=== PATIENT | male | born 1955 | race Caucasian/White ===

== ENCOUNTER 2018-11-10 01:36 | Observation (INO) | payer BC ==
--- NOTE | 2018-11-10 02:17 | ED ---
General Adult HPI - General Chief complaint: Urogenital Stated complaint: Male Time Seen by Provider: 11/10/18 01:48 Source: patient Mode of arrival: ambulatory Limitations: no limitations - History of Present Illness Initial comments: Dictation was produced using [employer] dictation software. please excuse any grammatical, word or spelling errors. Chief Complaint: Patient is a 63-year-old male. He has past medical history of urethral stricture presents today with urinary retention. History of Present Illness: 3-year-old male presents with chief complaint of urinary retention. He states that his symptoms have been progressively worse. Patient states that he last urinated approximately 4 PM today. Patient states he hasn't been able to urinate since then. 3 years ago patient was diagnosed with urethral stricture. He was evaluated by Dr. Plascencia. He was told to follow- up with a Dr. Toscano who was also perform some sort of interventional procedure to alleviate to stricture. Patient did not follow-up like he was told to. He's been having weak stream for the last several months. The ROS documented in this emergency department record has been reviewed and confirmed by me. Those systems with pertinent positive or negative responses have been documented in the HPI. All other systems are other negative and/or noncontributory. PHYSICAL EXAM: General Impression: Alert and oriented x3, not in acute distress HEENT: Normocephalic atraumatic, extra-ocular movements intact, pupils equal and reactive to light bilaterally, mucous membranes moist. Cardiovascular: Heart regular rate and rhythm, S1&S2 audible, no murmurs, rubs or gallops Chest: Lungs clear to auscultation bilaterally, no rhonchi, no wheeze, no rales Abdomen: Fullness felt to the suprapubic area Musculoskeletal: Pulses present and equal in all extremities, no peripheral edema Motor: no focal deficits noted Neurological: CN II-XII grossly intact, no focal motor or sensory deficits noted Skin: Intact with no visualized rashes Psych: Normal affect and mood ED course: Patient 63-year-old male with past medical history of urinary tract stricture presents with urinary retention. Vital signs upon arrival are within acceptable limits.Although attempts were performed to place Armenta catheter after bladder scan showed greater than 400 mL of urine. Immediately discussed patient case with Dr. Gee. Dr. Ortega did not feel the need for him to come in and perform an emergent Armenta catheter placement at this time. He over does request that cystoscopy cart and 2% lidocaine be at bedside when he comes in and rounded in the morning so he can perform the procedure. Patient appears comfortable at this time. he is notified of urology's recommendations. Patient wants some medication to help him feel more comfortable. Metabolic panel is unremarkable. Patient placed in observation. Dr. Ortega is placed on consult. - Related Data Home Medications Medication Instructions Recorded Confirmed Ibuprofen [Motrin] 200 mg PO Q6H PRN 09/08/15 11/10/18 Cholesterol Pill 1 tab PO DAILY 11/10/18 11/10/18 traMADol HCl [Ultram] 50 mg PO DAILY 11/10/18 11/10/18 Allergies Allergy/AdvReac Type Severity Reaction Status Date / Time No Known Allergies Allergy Verified 11/10/18 01:42 Review of Systems ROS Statement: Those systems with pertinent positive or pertinent negative responses have been documented in the HPI. ROS Other: All systems not noted in ROS Statement are negative. Past Medical History Additional Past Medical History / Comment(s): kidney stones History of Any Multi-Drug Resistant Organisms: None Reported Past Surgical History: Hernia Repair Past Psychological History: No Psychological Hx Reported Smoking Status: Former smoker Past Alcohol Use History: None Reported Past Drug Use History: None Reported General Exam Limitations: no limitations Course Vital Signs 11/10/18 01:37 Temperature 98.2 F Pulse Rate 81 Respiratory 18 Rate Blood Pressure 193/95 O2 Sat by Pulse 97 Oximetry Medical Decision Making - Lab Data Result diagrams: 11/10/18 02:25 Lab Results 11/10/18 Range/Units 02:25 Sodium 140 (137-145) mmol/L Potassium 4.7 (3.5-5.1) mmol/L Chloride 107 (98-107) mmol/L Carbon Dioxide 23 (22-30) mmol/L Anion Gap 10 mmol/L BUN 17 (9-20) mg/dL Creatinine 0.95 (0.66-1.25) mg/dL Est GFR (CKD-EPI)AfAm >90 (>60 ml/min/1.73 sqM) Est GFR (CKD-EPI)NonAf 85 (>60 ml/min/1.73 sqM) Glucose 114 H (74-99) mg/dL Calcium 9.7 (8.4-10.2) mg/dL Disposition Clinical Impression: Urinary retention Disposition: ADMITTED IP TO THIS [facility] Condition: Fair Decision Time: 03:07
[2018-11-10] MEDS ORDERED: NALOXONE 0.4 MG/ML 1 ML VIAL IV PRN (02:30)
[2018-11-10] MEDS ORDERED: ONDANSETRON 4 MG/2 ML VIAL IVP PRN (02:30)
[2018-11-10] MEDS ORDERED: ACETAMINOPHEN TAB 325 MG TAB PO PRN (02:30)
[2018-11-10 02:45] LABS: African American GFR (CKD) >90 (>60 ml/min/1.73 sqM); Anion Gap 10 mmol/L; Blood Urea Nitrogen 17 mg/dL (9-20); Calcium 9.7 mg/dL (8.4-10.2); Carbon Dioxide 23 mmol/L (22-30); Chloride 107 mmol/L (98-107); Glucose 114 mg/dL (74-99); Potassium 4.7 mmol/L (3.5-5.1); Sodium 140 mmol/L (137-145)
[2018-11-10] MEDS: MORPHINE SULFATE 4 MG/ML SYRINGE IV PRN ×2 (02:50→06:36)
[2018-11-10 07:24] VITALS: BP 135/74; PULSE 65; RESP 18; TEMP 98.4
[2018-11-10] MEDS ORDERED: LIDOCAINE URO-JET JELLY 2% 5 ML KIT URETHRAL ONE ×2 (08:59→09:00)
[2018-11-10] MEDS ORDERED: PANTOPRAZOLE 40 MG/10 ML VIAL IV SCH (09:00)
--- NOTE | 2018-11-10 09:30 | P.GSCN ---
History of Present Illness Consult date: 11/10/18 Reason for Consult: Urinary retention, inability to place Armenta. Requesting physician: Yaakov Moore History of present illness: The patient is a 63-year-old white male with a known bulbous urethral stricture. Dr. Salas dilated the stricture in 2015. The patient has noted a weakening of his urinary stream over the past several months. He presented to the emergency room unable to void. Attempts in the emergency room to place a Armenta catheter were unsuccessful. I am consulted for this reason. Review of Systems - Constitutional Denies chills, Denies fever - Genitourinary Reports urinary retention, Denies hematuria Past Medical History Past Medical History: Hyperlipidemia Additional Past Medical History / Comment(s): kidney stones, urethral stricture History of Any Multi-Drug Resistant Organisms: None Reported Past Surgical History: Hernia Repair, Orthopedic Surgery Additional Past Surgical History / Comment(s): left shoulder surgery Past Anesthesia/Blood Transfusion Reactions: No Reported Reaction Past Psychological History: No Psychological Hx Reported Smoking Status: Former smoker Past Alcohol Use History: None Reported Past Drug Use History: None Reported - Past Family History Father Family Medical History: Dementia, Diabetes Mellitus Additional Family Medical History / Comment(s): parkinsons Mother Family Medical History: Dementia Additional Family Medical History / Comment(s): aneursym Brother(s) Family Medical History: No Reported History Sister(s) Family Medical History: No Reported History Son(s) Family Medical History: No Reported History Medications and Allergies Home Medications Medication Instructions Recorded Confirmed Type Ibuprofen [Motrin] 200 mg PO Q6H PRN 09/08/15 11/10/18 History Atorvastatin [Lipitor] 40 mg PO HS 11/10/18 11/10/18 History traMADol HCl [Ultram] 50 mg PO DAILY PRN 11/10/18 11/10/18 History Allergies Allergy/AdvReac Type Severity Reaction Status Date / Time No Known Allergies Allergy Verified 11/10/18 08:04 Surgical - Exam Vital Signs Temp Pulse Resp BP Pulse Ox 98.2 F 81 18 193/95 97 11/10/18 01:37 11/10/18 01:37 11/10/18 01:37 11/10/18 01:37 11/10/18 01:37 - General well developed, well nourished, moderate distress - Respiratory normal respiratory effort - Abdomen Abdomen: soft, tender, no guarding, no rigid, no rebound, distended Hernia: umbilical - Genitourinary normal penis with no external lesions, testicles non-tender - Psychiatric oriented to time, oriented to person, oriented to place, speech is normal, memory intact Results - Labs 11/10/18 02:25 Abnormal Lab Results - Last 24 Hours (Table) 11/10/18 Range/Units 02:25 Glucose 114 H (74-99) mg/dL Diabetes panel 11/10/18 Range/Units 02:25 Sodium 140 (137-145) mmol/L Potassium 4.7 (3.5-5.1) mmol/L Chloride 107 (98-107) mmol/L Carbon Dioxide 23 (22-30) mmol/L BUN 17 (9-20) mg/dL Creatinine 0.95 (0.66-1.25) mg/dL Glucose 114 H (74-99) mg/dL Calcium 9.7 (8.4-10.2) mg/dL Calcium panel 11/10/18 Range/Units 02:25 Calcium 9.7 (8.4-10.2) mg/dL Pituitary panel 11/10/18 Range/Units 02:25 Sodium 140 (137-145) mmol/L Potassium 4.7 (3.5-5.1) mmol/L Chloride 107 (98-107) mmol/L Carbon Dioxide 23 (22-30) mmol/L BUN 17 (9-20) mg/dL Creatinine 0.95 (0.66-1.25) mg/dL Glucose 114 H (74-99) mg/dL Calcium 9.7 (8.4-10.2) mg/dL Adrenal panel 11/10/18 Range/Units 02:25 Sodium 140 (137-145) mmol/L Potassium 4.7 (3.5-5.1) mmol/L Chloride 107 (98-107) mmol/L Carbon Dioxide 23 (22-30) mmol/L BUN 17 (9-20) mg/dL Creatinine 0.95 (0.66-1.25) mg/dL Glucose 114 H (74-99) mg/dL Calcium 9.7 (8.4-10.2) mg/dL Assessment and Plan (1) Urinary retention Current Visit: Yes Status: Acute Code(s): R33.9 - RETENTION OF URINE, UN SPECIFIED SNOMED Code(s): 318252405 (2) Urethral stricture unspecified Current Visit: Yes Status: Acute Code(s): PJE2615 - SNOMED Code(s): 81950676 Plan: The penis was prepped and draped sterilely. 2% lidocaine gel was administered intraurethrally. A 3-Gambian filiform was passed into the bladder. Followers were then used to successively dilate the bulbous urethral stricture from 10- Gambian to 20-Gambian. The stricture felt short and not particularly dense. After dilating the stricture, a 16-Gambian Armenta catheter was placed. 1200 mL of clear yellow urine was drained from the bladder. It would be my recommendation that Mr. Rod be discharged home with the Armenta catheter. I have instructed him to remove the catheter on 11/15/2018 and follow-up with Dr. Salas 1 week later. Please notify me if I can be of any further assistance. Time with Patient: Greater than 30
--- NOTE | 2018-11-10 17:39 | HP ---
HISTORY AND PHYSICAL HISTORY AND PHYSICAL/DISCHARGE SUMMARY: DATE OF SERVICE: 11/10/2018 CHIEF COMPLAINT: Urinary retention. HISTORY OF PRESENT ILLNESS: This 63-year-old gentleman with a past history of hyperlipidemia, history of nephrolithiasis, history of hernia repair, being followed by Dr. Abdi in the outpatient setting has had a history of urinary obstruction because of urethral stricture in the bulbous area. The patient had dilatation by Dr. Salas previously. Now the patient noted weakening of stream and the patient was complaining of increasing difficulty in micturition and the patient came to [facility] and was admitted for further evaluation and treatment. After admission, urology, Dr. Gee saw the patient and catheter insertion was performed. The patient improved significantly. The bulbous urethral stricture was dilated and the patient being closely monitored at this time. There is no history of fever, rigors. No history of headache loss of consciousness. No chest pain, palpitations, hematochezia or melena at this time. PREMEDICATION: Past medical history of hypertension, hyperlipidemia, nephrolithiasis, ureteral stricture and history of nicotine dependence. MEDICATIONS ARE: Home medications are: 1. Ultram 50 mg daily p.r.n. 2. Motrin p.r.n. 3. Lipitor 40 mg q.h.s. ALLERGIES: None. FAMILY HISTORY: History of diabetes, history of dementia, history of Parkinson's in the family. SOCIAL HISTORY: Previous history of smoking. No history of current smoking or alcohol intake. REVIEW OF SYSTEMS: ENT: No diminished vision. No diminished hearing. CARDIOVASCULAR: No angina or palpitations. RESPIRATORY: No cough. GI as mentioned earlier. as mentioned earlier. CENTRAL NERVOUS SYSTEM: No numbness or weakness. ALLERGY/IMMUNOLOGY: No asthma or hayfever. MUSCULOSKELETAL: As mentioned earlier. HEMATOLOGY/ONCOLOGY: No history of anemia. ENDOCRINE: No history of diabetes, hypothyroidism. CONSTITUTIONAL: As mentioned earlier. DERMATOLOGY: Negative. RHEUMATOLOGY: Negative. PSYCHIATRIC: As mentioned earlier. PHYSICAL EXAMINATION: Alert and oriented times three. Pulse 65, blood pressure 130/74, respiration 18, temperature 98.4, pulse ox 94% on room air. HEENT conjunctivae normal. Oral mucosa moist. NECK is no jugular venous distention. No carotid bruit. No lymph node enlargement. Cardiovascular system: S1, S2 muffled. RESPIRATIONS: Breath sounds diminished in the bases. No rhonchi. No crackles. ABDOMEN: Soft, nontender. No mass palpable. LEGS: No edema. No swelling. NERVOUS SYSTEM: Higher functions as mentioned earlier, moves all 4 limbs. No focal motor or sensory deficits. Lymphatics: No lymph nodes palpable in the neck, axillae or groin. SKIN: No ulcer, no rashes and no bleeding. JOINTS: No active deforming arthropathy. LAB STUDIES: Sodium 140, potassium 4.2. ASSESSMENT: 1. Acute urinary retention secondary to urethral stricture status post dilatation and Armenta catheter insertion. 2. Hyperlipidemia. 3. History of nephrolithiasis. 4. History of hernia repair. 5. History of degenerative joint disease. 6. Remote history of nicotine dependence. RECOMMENDATIONS AND DISCUSSION: In this 63-year-old gentleman who presented with multiple complex medical issues, at this time, I recommend to continue current medications, management. Symptomatic treatment. Urology inserted the catheter. Recommended outpatient followup. Otherwise basic labs are within normal limits. Renal functions are normal. I would recommend resume the home medications. Follow closely with Dr. Abdi in the outpatient setting. Please refer to medication reconciliation for home medication list. MMODL / IJN: [id number] /
== END 2018-11-10 13:00 | disposition home or self-care (01) ==
LOC: EC 01:36 → 1SOBS 02:32
PROVIDERS: ADMIT Hospitalist; ATTEND Hospitalist
DX: R33.9 Retention of urine, unspecified (principal); N35.919 Unspecified urethral stricture, male, unspecified site; E78.5 Hyperlipidemia, unspecified; Z87.891 Personal history of nicotine dependence; Z87.442 Personal history of urinary calculi; Z98.890 Other specified postprocedural states; Z79.899 Other long term (current) drug therapy
CPT/HCPCS: 96376; 96374; 96375; 99284; 51798; 36415; 80048; G0378; J2270; J2405

== ENCOUNTER → 2018-12-11 | Outpatient (CLI) | payer BC ==
--- NOTE | 2018-12-11 13:28 | XR ---
EXAMINATION TYPE: XR chest 2V DATE OF EXAM: 12/11/2018 COMPARISON: None HISTORY: 63-year-old male with cough TECHNIQUE: Frontal and lateral views FINDINGS: The cardiomediastinal silhouette, aorta, and pulmonary vasculature are within normal limits. Lungs an d pleural spaces are clear. IMPRESSION: No acute cardiopulmonary process.
== END | disposition home or self-care (01) ==
LOC: RADXRYALE 09:13
PROVIDERS: ATTEND Internal Medicine
DX: R05 Cough (principal)
CPT/HCPCS: 71046

== ENCOUNTER → 2018-12-17 | Outpatient (CLI) | payer BC ==
--- NOTE | 2018-12-17 09:14 | CT ---
EXAMINATION TYPE: CT abdomen pelvis w con DATE OF EXAM: 12/17/2018 COMPARISON: NONE HISTORY: 63-year-old male Weight loss and fatigue TECHNIQUE: Contiguous axial scanning of the abdomen and pelvis following administration of 100 ml Iso michel 300 IV contrast. Delayed images through the kidneys and coronal/sagittal reconstructions perform ed. CT DLP: 656.6 mGycm Automated exposure control for dose reduction was used. FINDINGS: Heart normal size without pericardial effusion. Coronary vessel calcifications are present. Mild depe ndent atelectasis. Liver mildly enlarged at 19.1 cm with low attenuation. Portal venous system is patent. No biliary ciara polo dilatation. Gallbladder, adrenal glands, and pancreas appear within normal limits. Spleen is upper limits of normal in size at 13.9 cm on coronal series. 1.7 cm cortical cyst anterior upper pole right kidney. There is an area of heterogeneous hypoenhancement within the lateral upper pole of the right kidney m easuring approximately 3.2 cm, referred to axial image 21. Smaller similar area anterior midpole righ t kidney. An additional similar heterogeneous hypoechoic area anterior mid left kidney measuring 3.5 cm with flynn rrounding perinephric fat stranding. Cysts within the left kidney measure up to 5.8 cm. There is a cystic structure in the region of hypo density within the left kidney measuring 1.4 cm suspected to represent a concurrent cortical cyst. Symmetric excretion of contrast from the kidneys. No dilated small bowel, free fluid, or free air. Borderline sized mesenteric lymph nodes on the left side of the abdomen measuring up to 7 mm, referen ce axial image 31. No retroperitoneal lymphadenopathy. Mild metastatic calcifications abdominal aorta and iliac arteries with fusiform AAA at 3.5 cm. Normal appendix. Mild overall stool burden. No pericolonic inflammatory change. Some surgical material seen along the left inguinal region. Moderate circumferential bladder wall thickening. Prostate gland measures 4.4 cm wide. Vitrectomy cli ps. No abnormal fluid collection in the pelvis or pelvic lymphadenopathy seen. Bones: Mild degenerative changes of the hips and SI joints. Mild degenerative disc disease throughout the lumbar spine with facet arthropathy lower lumbar spine. IMPRESSION: 1. ROUNDED AREAS OF HETEROGENEOUS HYPOVASCULAR ENHANCEMENT IN THE KIDNEYS, LARGEST MEASURING 3.2 CM O N THE RIGHT AND 3.5 CM ON THE LEFT. ON THE LEFT, THERE IS SOME ASSOCIATED PERINEPHRIC FAT STRANDING. MULTIFOCAL PYELONEPHRITIS IS FAVORED. 2. FOLLOW-UP CONTRAST-ENHANCED CT IS RECOMMENDED AFTER SUCCESSFUL TREATMENT TO EXCLUDE THE LESS LIKEL Y POSSIBILITY OF UNDERLYING HYPOVASCULAR RENAL MASSES. 3. MODERATE CIRCUMFERENTIAL BLADDER WALL THICKENING. GIVEN THE RENAL FINDINGS ABOVE, CORRELATE FOR CY STITIS. 4. AAA AT 3.5 CM. A [place] level critical message alert has been initiated for Cherry Abdi MD via the [facility] Critical Results System on 12/17/2018 9:11 AM. This message alert has been sent to Cherry Abdi MD via the preferences provided by the clinician for the receipt of Radiology Critical Findings. Message ID [id number].
== END | disposition home or self-care (01) ==
LOC: RADCTMAIN 07:32
PROVIDERS: ATTEND Internal Medicine
DX: I71.4 Abdominal aortic aneurysm, without rupture (principal); N32.89 Other specified disorders of bladder; R93.421 Abnormal radiologic findings on diagnostic imaging of right kidney; R93.422 Abnormal radiologic findings on diagnostic imaging of left kidney
CPT/HCPCS: 74177; Q9967

== ENCOUNTER → 2020-12-03 | Outpatient (CLI) | payer MEDICARE, BC ==
--- NOTE | 2020-12-03 17:00 | ECHOF ---
Referral Reason:R07.9 Chest pain MEASUREMENTS -------- HEIGHT: 175.3 cm WEIGHT: 88.0 kg BP: IVSd: 1.3 cm (0.6 - 1.1) LVIDd: 4.6 cm (3.9 - 5.3) LVPWd: 1.4 cm (0.6 - 1.1) EDV(Teich): 96 ml IVSs: 1.8 cm LVIDs: 2.9 cm LVPWs: 2.0 cm %IVS Thck: 38 % ESV(Teich): 31 ml EF(Teich): 67 % %FS: 37 % SV(Teich): 64 ml RVIDd: 3.9 cm (< 3.3) LALs A4C: 5.5 cm LAAs A4C: 23.0 cm LAESV A-L A4C: 81 ml LAESV MOD A4C: 78 ml LALs A2C: 5.6 cm LAAs A2C: 19.5 cm LAESV A-L A2C: 57 ml LAESV MOD A2C: 52 ml LAESV(A-L): 69 ml LAESV Index (A-L): 33.67 ml/m Ao Diam: 3.3 cm (2.0 - 3.7) LA Diam: 4.4 cm (2.7 - 3.8) AV Cusp: 2.2 cm (1.5 - 2.6) EPSS: 0.2 cm MV E Vasquez: 0.74 m/s MV DecT: 213 ms MV Dec Taliaferro: 3.5 m/s MV A Vasquez: 0.71 m/s MV E/A Ratio: 1.04 MV PHT: 62 ms LVOT Vmax: 1.05 m/s LVOT maxP.37 mmHg AV Vmax: 1.46 m/s AV maxP.47 mmHg AR Vmax: 4.41 m/s AR maxP.67 mmHg AR PHT: 547 ms AR Dec Time: 1886 ms AR Dec Taliaferro: 2.3 m/s TR Vmax: 2.73 m/s TR maxP.74 mmHg RAP: 5.00 mmHg RVSP: 34.74 mmHg MV EF SLOPE: 85.97 mm/s (70 - 150) MV EXCURSION: 26.72 mm (> 18.000) FINDINGS -------- Sinus rhythm. This was a technically adequate study. The left ventricular size is normal. There is mild concentric left ventricular hypertrophy. Overa ll left ventricular systolic function is normal with, an EF between 55 - 60 %. The diastolic fillin g pattern is normal for the age of the patient 14.63. The right ventricle is mildly enlarged. LA is midly dilated 29-33ml/m2. The right atrial size is normal. Mobile interatrial septum. The aortic valve is trileaflet and appears structurally normal. There is mild aortic valve sclerosi s. There is mild aortic regurgitation. There is no evidence of aortic stenosis. [id number] mitral regurgitation is present. Mild tricuspid regurgitation present. There is borderline pulmonary hypertension. The right ventr icular systolic pressure, as measured by Doppler, is 34.74mmHg. There is no pulmonic regurgitation present. The aortic root size is normal. IVC Not well visulized. There is no pericardial effusion. CONCLUSIONS -------- 1. The left ventricular size is normal. 2. There is mild concentric left ventricular hypertrophy. 3. Overall left ventricular systolic function is normal with, an EF between 55 - 60 %. 4. The diastolic filling pattern is normal for the age of the patient 14.63 5. The right ventricle is mildly enlarged. 6. LA is midly dilated 29-33ml/m2. 7. Mobile interatrial septum. 8. There is mild aortic valve sclerosis. 9. There is mild aortic regurgitation. 10. Glaw-ft-mornchcr mitral regurgitation is present. 11. Mild tricuspid regurgitation present. 12. There is borderline pulmonary hypertension. 13. The right ventricular systolic pressure, as measured by Doppler, is 34.74mmHg. HAND CANDLE MOLDER: Brianna Cotton [facility]
--- NOTE | 2020-12-03 17:53 | P.STRESS ---
- Stress Test Note Stress Test Results/Findings: Exam Performed: stress test Exam Date: 12/03/20 Reason for Exam: CHEST PAIN Height: 5 ft 9 in Weight: 88.2 kg Protocol: SHAYNE Stage: 2 Duration of Exercise: 6:00 Resting Heart Rate: 63 Resting Blood Pressure: 147/85 Maximum Achieved Heart Rate: 134 Maximum Achieved Blood Pressure: 199/69 85% PMHR: 131 100% PMHR: 154 METS: 7.1 Technologist Comment: Stress Test Results/Findings: Baseline heart rate 63 beats a minute, Baseline blood pressure 147/85 mmHg Baseline twelve-lead EKG showed normal sinus rhythm with normal cardiac intervals normal ST segments line patient exercised on a Shayne protocol for 6 minutes, achieving a peak heart rate of 134 beats a minute Peak blood pressure 199/69 mmHg There was no ECG evidence for ischemia no arrhythmias noted. Impression average exercise capacity No ECG evidence for ischemia
== END | disposition home or self-care (01) ==
LOC: RADECHMAIN 08:21
PROVIDERS: ATTEND Internal Medicine
DX: I08.3 Combined rheumatic disorders of mitral, aortic and tricuspid valves (principal); I37.1 Nonrheumatic pulmonary valve insufficiency
CPT/HCPCS: 93017; 93306

== ENCOUNTER → 2023-10-02 | Outpatient (CLI) | payer MEDICARE, BC ==
--- NOTE | 2023-10-02 16:26 | XR ---
EXAMINATION TYPE: XR chest 2V DATE OF EXAM: 10/02/2023 3:34 PM CLINICAL INDICATION:Male, 68 years old with history of [id number] ACUTE BRONCHOSPASM; [facility] COMPARISON: Chest radiographs from 12/11/2018. TECHNIQUE: XR chest 2V Frontal and lateral views of the chest. FINDINGS: Lungs/Pleura: There is no evidence of pleural effusion, focal consolidation, or pneumothorax. Pulmonary vascularity: Unremarkable. Heart/mediastinum: Cardiomediastinal silhouette is unremarkable. Musculoskeletal: No acute osseous pathology. IMPRESSION: No acute cardiopulmonary disease/process.
== END | disposition home or self-care (01) ==
LOC: RADXRYALE 15:23
PROVIDERS: ATTEND Internal Medicine
DX: J98.01 Acute bronchospasm (principal)
CPT/HCPCS: 71046

== ENCOUNTER → 2023-10-19 | Outpatient (CLI) | payer MEDICARE, BC ==
--- NOTE | 2023-10-19 09:17 | FL ---
EXAMINATION TYPE: FL barium swallow DATE OF EXAM: 10/19/2023 CLINICAL INDICATION: 68-year-old male, swelling, pain in esophagus. R13.14 DYSPHAGIA, PHARYNGOESOPHA GEAL PHASE COMPARISON: None Total Fluoroscopy Time: 2 minutes 17 seconds DAP: 632.04 mGycm2 78 images obtained. FINDINGS: There is deep penetration noted with contrast extending to the vocal folds but no aspiration seen. Sp eech pathology evaluation as clinically indicated. Prominent residuals are noted along the posterolat eral pharyngeal wall, vallecula, and perform sinuses. However, no abnormal narrowing, CP muscle hypertrophy, or diverticulum is seen in the cervical esopha fidel. The thoracic esophagus shows normal course and caliber but with moderate to severe tertiary peristalt ic waves and blunted secondary stripping waves. There is delayed clearance of contrast from the esoph karolyn both with the patient upright and supine/prone. There is no fixed narrowing is seen. Question fine mucosal irregularity along the distal half of the esophagus. No hiatal hernia or gastroesophageal reflux seen during the course of the exam. IMPRESSION: 1. Deep penetration to the vocal folds during swallows but no marilu aspiration. Speech pathology eval uation if clinically indicated. 2. No stricture or mass is identified. However, there is possible fine mucosal irregularity along the distal half of the esophagus. Fine ulcerations/esophagitis is difficult to exclude. Consider direct visualization if symptoms persist. 3. 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 4. No hiatal hernia or GERD seen.
== END | disposition home or self-care (01) ==
LOC: RADUSWWP 08:01
PROVIDERS: ATTEND Internal Medicine
DX: K22.89 Other specified disease of esophagus (principal)
CPT/HCPCS: 74220